=== PATIENT | female | born 1950 | race Caucasian/White ===

== ENCOUNTER 2019-06-20 13:00 | Outpatient (RCR) | payer MEDICARE ==
[~2019-06-20 13:00] MED LIST: ADVAIR 500/501 EA INH; ASPIR 8181 MG PO; ATORVASTATIN CA80 MG PO; CLARITIN-D 121 EACH PO; CLOPIDOGREL75 MG PO; CYMBALTA60 MG PO; DALIRESP500 MCG PO; ENBREL25 MG/0.5 SQ; FLUDROCORTISON0.1 MG PO; FOLIC ACID1 MG PO; HYDROCODON-ACE1 EAC9 PO; METHOTREXATE2.5 MG PO; MORPHINE SULFAT30 M1 PO; MS CONTIN30 MG PO; NEXIUM40 MG PO; PROAIR HFA INH8.5 GM INH; PROLIA60 MG/1 ML SQ; PROMETHAZINE V237 ML PO; TRAZODONE HCL100 MG PO; TRIAMCINOLONE A15 G1 TOP
== END 2019-06-24 ==
LOC: PT 13:00
PROVIDERS: ATTEND Specialist
DX: M17.11 Unilateral primary osteoarthritis, right knee (principal); M25.561 Pain in right knee; M25.661 Stiffness of right knee, not elsewhere classified; M62.81 Muscle weakness (generalized); R26.2 Difficulty in walking, not elsewhere classified
CPT/HCPCS: 97139

== ENCOUNTER 2019-07-07 10:00 | Outpatient (RCR) | payer MEDICARE | END 2019-07-25 | LOC: PT 10:00 | PROVIDERS: ATTEND Specialist | DX: M17.11 Unilateral primary osteoarthritis, right knee (principal); M25.561 Pain in right knee; M25.661 Stiffness of right knee, not elsewhere classified; M62.81 Muscle weakness (generalized); R26.2 Difficulty in walking, not elsewhere classified ==